=== PATIENT | male | born 1945 | race Caucasian/White ===

== ENCOUNTER 2023-06-11 12:11 | Outpatient (CLI) | payer OTHER | END 2023-06-11 12:12 | disposition home or self-care (01) | LOC: CSHULT 12:11 | PROVIDERS: ATTEND Chiropractor | DX: J44.9 Chronic obstructive pulmonary disease, unspecified (principal); I10 Essential (primary) hypertension; R93.1 Abnormal findings on diagnostic imaging of heart and coronary circulation | CPT/HCPCS: 93005; 93010; 93306 ==